=== PATIENT | female | born 1990 | race Caucasian/White ===

== ENCOUNTER 2017-11-14 08:18 | Outpatient (CLI) | payer OTHER ==
[2017-11-14 09:51] LABS: ADD UMIC NO; UR ASCORBIC ACID NEGATIVE (NEGATIVE); UR BACTERIA FEW /HPF (NONE SEEN); UR BILIRUBIN (Dip) NEGATIVE (NEGATIVE); UR BLOOD (Dip) NEGATIVE (NEGATIVE); UR CLARITY SLIGHTLY CLOUDY (CLEAR); UR COLOR YELLOW (YELLOW); UR GLUCOSE (Dip) NEGATIVE (NEGATIVE); UR KETONES (Dip) NEGATIVE (NEGATIVE); UR LEUKOCYTE ESTERASE (Dip) NEGATIVE Leu/ul (NEGATIVE); UR MUCUS MODERATE /HPF (NONE SEEN); UR NITRITE (Dip) NEGATIVE (NEGATIVE); UR RBC 2 /HPF (0-5); UR SPECIFIC GRAVITY (Dip) 1.024 (1.003-1.030); UR SQUAMOUS EPITHELIAL CELL FEW /HPF (FEW); UR TOTAL PROTEIN (Dip) NEGATIVE (NEGATIVE); UR UROBILINOGEN (Dip) NEGATIVE (NEGATIVE); UR WBC 2 /HPF (0-5)
[2017-11-14 10:01] LABS: ADD MAN DIFF? NO
[2017-11-14 10:04] LABS: WHITE BLOOD COUNT 8.1 10^3/ul (4.8-10.8)
[2017-11-14 10:04] LABS: BASOPHILS % 0.2 % (0.0-2.0); EOSINOPHILS # 0.1 10^3/ul (0.0-0.5); EOSINOPHILS % 0.6 % (0.0-7.0); HEMATOCRIT 35.6 % (37.0-47.0); HEMOGLOBIN 11.9 g/dl (12.0-16.0); LYMPHOCYTES # 1.5 10^3/ul (0.8-2.9); LYMPHOCYTES % 18.2 % (15.0-51.0); MEAN CORPUSCULAR HEMOGLOBIN 29.4 pg (29.0-33.0); MEAN CORPUSCULAR HGB CONC 33.4 g/dl (32.0-37.0); MEAN CORPUSCULAR VOLUME 87.9 fl (82.0-101.0); MONOCYTE # 0.3 10^3/ul (0.3-0.9); MONOCYTES % 4.2 % (0.0-11.0); NEUTROPHIL # 6.2 10^3/ul (1.6-7.5); NEUTROPHILS % 76.4 % (39.0-77.0); PLATELET COUNT 126 10^3/UL (140-415); RED BLOOD COUNT 4.05 10^6/ul (4.20-5.40); RED CELL DISTRIBUTION WIDTH 13.5 % (11.5-14.5)
[2017-11-14 10:06] LABS: MEAN PLATELET VOLUME 11.5 fl (7.4-10.4); POSITIVE DIFF @See below
== END 2017-11-14 10:24 | disposition home or self-care (01) ==
LOC: OBT 08:18 → L-D 08:20 → OBT 10:24
DX: O26.892 Other specified pregnancy related conditions, second trimester (principal); R10.2 Pelvic and perineal pain; Z3A.17 17 weeks gestation of pregnancy
CPT/HCPCS: 76815; 76817; 81001; 81003; 85025

== ENCOUNTER 2017-11-14 10:32 | Emergency (ER) | payer OTHER | END 2017-11-14 13:27 | disposition home or self-care (01) | LOC: FTE 10:32 | DX: O99.613 Diseases of the digestive system complicating pregnancy, third trimester (principal); K42.9 Umbilical hernia without obstruction or gangrene; O99.513 Diseases of the respiratory system complicating pregnancy, third trimester; J45.909 Unspecified asthma, uncomplicated; Z3A.11 11 weeks gestation of pregnancy | CPT/HCPCS: 76536; 99284-25 ==

== ENCOUNTER 2018-01-20 23:30 | Outpatient (CLI) | payer OTHER ==
[2018-01-21 00:40] LABS: ADD UMIC YES; UR ASCORBIC ACID 40 mg/dL (NEGATIVE); UR BACTERIA FEW /HPF (NONE SEEN); UR BILIRUBIN (Dip) NEGATIVE (NEGATIVE); UR BLOOD (Dip) NEGATIVE (NEGATIVE); UR CLARITY SLIGHTLY CLOUDY (CLEAR); UR COLOR YELLOW (YELLOW); UR GLUCOSE (Dip) 3+ mg/dL (NEGATIVE); UR KETONES (Dip) TRACE mg/dL (NEGATIVE); UR LEUKOCYTE ESTERASE (Dip) 1+ Leu/ul (NEGATIVE); UR MUCUS MODERATE /HPF (NONE SEEN); UR NITRITE (Dip) NEGATIVE (NEGATIVE); UR RBC 4 /HPF (0-5); UR SPECIFIC GRAVITY (Dip) 1.028 (1.003-1.030); UR SQUAMOUS EPITHELIAL CELL MODERATE /HPF (FEW); UR TOTAL PROTEIN (Dip) 1+ mg/dl (NEGATIVE); UR UROBILINOGEN (Dip) 1+ mg/dL (NEGATIVE); UR WBC 2 /HPF (0-5)
[2018-01-21 00:42] LABS: ADD MAN DIFF? NO
[2018-01-21 00:47] LABS: BASOPHILS % 0.2 % (0.0-2.0); EOSINOPHILS # 0.1 10^3/ul (0.0-0.5); EOSINOPHILS % 0.5 % (0.0-7.0); HEMOGLOBIN 10.3 g/dl (12.0-16.0); LYMPHOCYTES # 2.2 10^3/ul (0.8-2.9); LYMPHOCYTES % 22.2 % (15.0-51.0); MEAN CORPUSCULAR HEMOGLOBIN 27.9 pg (29.0-33.0); MEAN CORPUSCULAR HGB CONC 31.2 g/dl (32.0-37.0); MEAN CORPUSCULAR VOLUME 89.4 fl (82.0-101.0); MEAN PLATELET VOLUME 9.1 fl (7.4-10.4); MONOCYTE # 0.6 10^3/ul (0.3-0.9); MONOCYTES % 6.3 % (0.0-11.0); NEUTROPHIL # 7.1 10^3/ul (1.6-7.5); NEUTROPHILS % 70.4 % (39.0-77.0); PLATELET COUNT 260 10^3/UL (140-415); RED BLOOD COUNT 3.69 10^6/ul (4.20-5.40); RED CELL DISTRIBUTION WIDTH 14.2 % (11.5-14.5)
[2018-01-21 00:47] LABS: WHITE BLOOD COUNT 10.1 10^3/ul (4.8-10.8)
== END 2018-01-21 02:16 | disposition home or self-care (01) ==
LOC: OBT 23:30 → L-D 23:30 → OBT 01-21 02:16
DX: O26.892 Other specified pregnancy related conditions, second trimester (principal); Z3A.17 17 weeks gestation of pregnancy; R10.2 Pelvic and perineal pain
CPT/HCPCS: 36415; 76817; 76818; 81001; 85025; 87086

== ENCOUNTER 2018-04-13 23:35 | Inpatient (IN) | payer OTHER ==
[2018-04-14 01:46] LABS: ADD UMIC YES; UR ASCORBIC ACID 40 mg/dL (NEGATIVE); UR BACTERIA FEW /HPF (NONE SEEN); UR BILIRUBIN (Dip) NEGATIVE (NEGATIVE); UR BLOOD (Dip) NEGATIVE (NEGATIVE); UR CALCIUM OXALATE CRYSTAL MANY /HPF (NONE SEEN); UR CLARITY CLOUDY (CLEAR); UR COLOR YELLOW (YELLOW); UR GLUCOSE (Dip) NEGATIVE (NEGATIVE); UR KETONES (Dip) NEGATIVE (NEGATIVE); UR LEUKOCYTE ESTERASE (Dip) 1+ Leu/ul (NEGATIVE); UR MUCUS FEW /HPF (NONE SEEN); UR NITRITE (Dip) NEGATIVE (NEGATIVE); UR RBC 10 /HPF (0-5); UR SPECIFIC GRAVITY (Dip) 1.025 (1.003-1.030); UR SQUAMOUS EPITHELIAL CELL FEW /HPF (FEW); UR TOTAL PROTEIN (Dip) NEGATIVE (NEGATIVE); UR UROBILINOGEN (Dip) 1+ mg/dL (NEGATIVE); UR WBC 5 /HPF (0-5)
[2018-04-14] MEDS ORDERED: METHYLERGONOVINE 0.2 MG INJ IM ×2 (06:00→18:00)
[2018-04-14] MEDS ORDERED: MISOPROSTOL 200 MCG TAB PR ×2 (06:00→18:00)
[2018-04-14] MEDS ORDERED: BUTORPHANOL 2 MG INJ IV (06:00)
[2018-04-14] MEDS ORDERED: CARBOPROST 250 MCG INJ IM ×2 (06:00→18:00)
[2018-04-14] MEDS ORDERED: OXYTOCIN 30 UNITS/LR 500 ML IV ×4 (06:00→18:00)
[2018-04-14] MEDS ORDERED: LIDOCAINE 1% (MPF) 30 ML INJ INJ (06:00)
[2018-04-14] MEDS: LACTATED RINGER'S 1,000 ML IV ×3 (06:24→14:26)
[2018-04-14] MEDS: AMPICILLIN 2 GM/NS (PMX) 100 ML IV (06:24)
[2018-04-14 06:43] LABS: ADD MAN DIFF? NO
[2018-04-14 06:47] LABS: BASOPHILS % 0.3 % (0.0-2.0); EOSINOPHILS # 0.1 10^3/ul (0.0-0.5); EOSINOPHILS % 0.6 % (0.0-7.0); HEMATOCRIT 34.6 % (37.0-47.0); HEMOGLOBIN 10.5 g/dl (12.0-16.0); LYMPHOCYTES # 1.9 10^3/ul (0.8-2.9); LYMPHOCYTES % 23.6 % (15.0-51.0); MEAN CORPUSCULAR HEMOGLOBIN 25.5 pg (29.0-33.0); MEAN CORPUSCULAR HGB CONC 30.3 g/dl (32.0-37.0); MEAN PLATELET VOLUME 9.9 fl (7.4-10.4); MONOCYTE # 0.5 10^3/ul (0.3-0.9); MONOCYTES % 6.6 % (0.0-11.0); NEUTROPHIL # 5.4 10^3/ul (1.6-7.5); NEUTROPHILS % 68.3 % (39.0-77.0); PLATELET COUNT 236 10^3/UL (140-415); RED BLOOD COUNT 4.12 10^6/ul (4.20-5.40); RED CELL DISTRIBUTION WIDTH 15.4 % (11.5-14.5)
[2018-04-14 06:47] LABS: WHITE BLOOD COUNT 7.9 10^3/ul (4.8-10.8)
[2018-04-14] MEDS ORDERED: MISOPROSTOL 50 MCG CAPSULE PO (07:00)
[2018-04-14 07:13] LABS: INR 0.97
[2018-04-14 07:14] LABS: PARTIAL THROMBOPLASTIN TIME 29.6 Sec (23.0-35.0)
[2018-04-14 07:37] LABS: HEPATITIS B SURFACE ANTIGEN NEGATIVE (NEGATIVE)
[2018-04-14] MEDS ORDERED: IBUPROFEN 600 MG TAB PO (09:00)
[2018-04-14] MEDS: MINERAL OIL LIGHT 10 ML VIAL TOP (09:00)
[2018-04-14] MEDS: OXYTOCIN 30 UNITS/LR 500 ML IV ×2 (09:08→16:59)
[2018-04-14] MEDS ORDERED: ONDANSETRON 4 MG INJ IV (10:30)
[2018-04-14] MEDS ORDERED: KETOROLAC 30 MG INJ IV (10:30)
[2018-04-14] MEDS ORDERED: NALOXONE (0.4 MG/ML) INJ IV (10:30)
[2018-04-14] MEDS ORDERED: DIPHENHYDRAMINE 50 MG INJ IV (10:30)
[2018-04-14] MEDS ORDERED: HYDROmorphONE 0.5 MG/0.5 ML SYG IV ×2 (10:30)
[2018-04-14] MEDS ORDERED: FENTAnyl 2MCG/ML-ROPIV 0.2% 100 ML BAG EPI (10:30)
[2018-04-14] MEDS: AMPICILLIN 1 GM/NS (PMX) 50 ML IV ×2 (10:44→14:22)
[2018-04-14 15:37] LABS: RAPID PLASMA REAGIN NONREACTIVE (NR)
[2018-04-14] MEDS ORDERED: ALBUTEROL HFA 8 GM INHALER INH (18:00)
[2018-04-14] MEDS ORDERED: DIBUCAINE 1% 30 GM OINT TOP (18:00)
[2018-04-14] MEDS ORDERED: NACL 0.9% 3 ML SYG IV (18:00)
[2018-04-14] MEDS ORDERED: METHYLERGONOVINE 0.2 MG TAB PO (18:00)
[2018-04-14] MEDS: BENZOCAINE 20% 56 ML SPRAY TOP (18:57)
[2018-04-14] MEDS: IBUPROFEN 600 MG TAB PO (18:57)
[2018-04-14] MEDS: WITCH HAZEL/GLYCERIN PAD PR (18:59)
[2018-04-14] MEDS: LANOLIN HPA 1 PKT TOP (18:59)
[2018-04-15] MEDS: IBUPROFEN 600 MG TAB PO ×5 (00:46→23:49)
[2018-04-15 07:29] LABS: ADD MAN DIFF? NO
[2018-04-15 07:30] LABS: WHITE BLOOD COUNT 8.2 10^3/ul (4.8-10.8)
[2018-04-15 07:31] LABS: BASOPHILS % 0.2 % (0.0-2.0); EOSINOPHILS # 0.1 10^3/ul (0.0-0.5); EOSINOPHILS % 0.9 % (0.0-7.0); HEMATOCRIT 30.1 % (37.0-47.0); HEMOGLOBIN 9.3 g/dl (12.0-16.0); LYMPHOCYTES # 1.9 10^3/ul (0.8-2.9); LYMPHOCYTES % 22.7 % (15.0-51.0); MEAN CORPUSCULAR HEMOGLOBIN 26.1 pg (29.0-33.0); MEAN CORPUSCULAR HGB CONC 30.9 g/dl (32.0-37.0); MEAN CORPUSCULAR VOLUME 84.3 fl (82.0-101.0); MEAN PLATELET VOLUME 9.9 fl (7.4-10.4); MONOCYTE # 0.6 10^3/ul (0.3-0.9); MONOCYTES % 6.7 % (0.0-11.0); NEUTROPHIL # 5.7 10^3/ul (1.6-7.5); NEUTROPHILS % 69.1 % (39.0-77.0); PLATELET COUNT 218 10^3/UL (140-415); RED BLOOD COUNT 3.57 10^6/ul (4.20-5.40); RED CELL DISTRIBUTION WIDTH 15.4 % (11.5-14.5)
[2018-04-16] MEDS: IBUPROFEN 600 MG TAB PO ×3 (06:03→17:26)
[2018-04-16] MEDS: DIPHTH/TET/ACEL PERTUSS (ADULT) 0.5 ML VIAL IM* (09:00)
== END 2018-04-16 19:00 | disposition home or self-care (01) | DRG 807 ==
LOC: OBT 23:35 → L-D 23:35 → OBT 04-14 05:45 → L-D 04-14 05:45 → PP1 04-14 17:09
PROC: 10E0XZZ Delivery of Products of Conception, External Approach (ICD-10-PCS; principal; 2018-04-14)
DX: O62.0 Primary inadequate contractions (principal); O99.824 Streptococcus B carrier state complicating childbirth; Z37.0 Single live birth; Z3A.39 39 weeks gestation of pregnancy
CPT/HCPCS: 62319; 76815; 76818; 81001; 85025; 85610; 85730; 86592; 86850; 86900; 86901; 87340